=== PATIENT | male | born 1940 | race Two or more races ===

== ENCOUNTER 2020-06-21 08:45 | Inpatient (IN) | payer OTHER ==
[~2020-06-21] VITALS: Ht 177.8 cm; Wt 92.1 kg
[2020-06-21] MEDS ORDERED: XARELTO20 M1 PO (10:58)
[2020-06-21] MEDS ORDERED: NORVASC5 MG PO (10:58)
[2020-06-26] MEDS ORDERED: CIALIS20 MG (09:28)
[2020-06-26] MEDS ORDERED: MONTELUKAST SOD10 MG (09:29)
== END 2020-06-27 15:26 | disposition home or self-care (01) | DRG 337 ==
LOC: O/R 06-26 06:05 → SURH 06-26 06:05
PROVIDERS: ADMIT Colon & Rectal Surgery; ATTEND Colon & Rectal Surgery
PROC: 0DNB4ZZ Release Ileum, Percutaneous Endoscopic Approach (ICD-10-PCS; principal; 2020-06-26 10:15)
DX: K56.51 Intestinal adhesions [bands], with partial obstruction (principal); I48.0 Paroxysmal atrial fibrillation; J45.20 Mild intermittent asthma, uncomplicated; I11.9 Hypertensive heart disease without heart failure